=== PATIENT | female | born 1960 | race Caucasian/White ===

== ENCOUNTER 2022-08-30 20:35 | Emergency (ER) | payer SELFPAY ==
[~2022-08-30] VITALS: Ht 165.1 cm; Wt 66.2 kg
[2022-08-30] MEDS ORDERED: cloNIDine HCL 0.1 MG TAB PO ONE (20:45)
[2022-08-30] MEDS ORDERED: cloNIDine HCL 0.1 MG TAB ONE (20:49)
[2022-08-30 21:19] LABS: Basophils # (auto) 0.1 10 ^3/uL (0-0.2); Basophils % (auto) 1.2 % (0.0-2.0); Eosinophils # (auto) 0.2 10 ^3/uL (0-0.8); Eosinophils % (auto) 3.3 % (0.0-7.0); Hemoglobin 14.9 g/dL (12.2-16.2); Lymphocytes # (auto) 1.8 10 ^3/uL (0.4-5.4); Lymphocytes % (auto) 25.3 % (10.0-50.0); Mean Corpuscular Hgb Conc. 33.7 g/dL (32.0-36.0); Mean Corpuscular Volume 97.8 fL (80.0-100.0); Monocytes # (auto) 0.4 10 ^3/uL (0-1.3); Monocytes % (auto) 6.3 % (0.0-12.0); Neutrophils # (auto) 4.5 10 ^3/uL (1.6-8.6); Neutrophils % (auto) 63.9 % (37.0-80.0); Nucleated Red Blood Cells % 0.1 %; Red Blood Cells 4.51 10^6/uL (4.0-5.20); Red Cell Distribution Width 13.1 % (11.8-14.3); White Blood Cell 7.1 10^3/uL (4.4-10.8)
[2022-08-30 21:27] LABS: Albumin 4.3 g/dL (3.4-5.0); Calcium 10.2 mg/dL (8.5-10.1); Magnesium 2.5 mg/dL (1.6-2.6); Potassium 3.7 mmol/L (3.5-5.1)
[2022-08-30 21:39] LABS: BUN/Creatinine Ratio 11.5 (10.0-20.0); Bilirubin, Total 0.4 mg/dL (0.2-1.0); Total Protein 7.7 g/dL (6.4-8.2)
[2022-08-30 22:03] LABS: Blood Alcohol < 3.0 mg/dL (0-5); Lipase 112 U/L (73-393)
[2022-08-30 22:15] LABS: INR 0.92 (0.9-1.15); Partial Thromboplastin Time 31.3 sec (24.6-33.4)
[2022-08-31] MEDS ORDERED: MECL25TA18 PO
[2022-08-31 00:30] VITALS: BP 138/77
== END 2022-08-31 00:36 | disposition home or self-care (01) ==
LOC: ER 20:35
DX: R42 Dizziness and giddiness (principal); F41.9 Anxiety disorder, unspecified
CPT/HCPCS: 36415; 70450; 71045; 80053; 80320; 83605; 83690; 83735; 83880; 84484; 85025; 85379; 85610; 85730; 87040; 93005